=== PATIENT | male | born 1930 | race Caucasian/White ===

== ENCOUNTER 2016-12-14 12:58 | Emergency (ER) | payer OTHER ==
[~2016-12-14] VITALS: Ht 182.9 cm; Wt 72.3 kg
[~2016-12-14 12:58] MED LIST: ASPI325T45 PO; LEVO100T PO; MULTIVITAMIN SENIOR PO; PRLSR20 PO; SIMV20TA2 PO; TRAV0.00 OPB
[2016-12-14 13:01] VITALS: TEMP 37
[2016-12-14] MEDS ORDERED: SODIUM CHLORIDE 0.9% 500ML 500 ML IV STA (13:09)
[2016-12-14] MEDS ORDERED: ALBUT/IPRATROP 3MG/0.5MG NEB 3 ML VIAL INH ONE (13:15)
[2016-12-14] MEDS ORDERED: ACETAMINOPHEN 500 MG TAB PO STA (13:16)
[2016-12-14] MEDS ORDERED: MELA1CAP9 PO (13:20)
[2016-12-14] MEDS ORDERED: METO-720 PO (13:20)
[2016-12-14 13:26] VITALS: O2SAT 96; Ht 182.9 cm; Wt 72.3 kg
--- NOTE | 2016-12-14 13:41 | DIAGNOSTIC IMAGING REPORT ---
CHEST ONE VIEW PORTABLE CLINICAL HISTORY: Shortness of breath. Fever. COMPARISON STUDY: 08/13/2014 FINDINGS: The heart is at the upper limits of normal in size. There are interstitial pulmonary fibrotic changes, minimally progressive when compared the prior study. There is no lobar consolidation. There is chronic blunting of the right lateral costophrenic angle. There is a proximal right humeral calcification, likely representing a bone infarct or chondroid lesion.[ IMPRESSION: 1. Interstitial pulmonary fibrotic changes, slightly progressive when compared the prior study 2. Persistent blunting of the right lateral costophrenic angle. This may indicate a small right pleural effusion Electronically signed by: Camron Waller M.D. 12/14/2016 1:39 PM Dictated Date/Time: 12/14/2016 1:37 PM
--- NOTE | 2016-12-14 13:52 | EMERGENCY ROOM VISIT NOTE ---
History Report prepared by Kimberly: Yadira Gottlieb Under the Supervision of: Dr. Jer Bentley M.D. First contact with patient: 13:09 Chief Complaint: FLU LIKE SX Stated Complaint: SHAKES, FLU, POSS FEVER History of Present Illness The patient is a 86 year old male who presents to the Emergency Room with complaints of worsening flu-like symptoms that started yesterday. He is experiencing "shakes", cough, and diarrhea. He is experiencing 3-4 episodes of diarrhea a day. The patient denies abdominal pain. He has not taken any Tylenol. The patient also states that he woke up with a sore throat this morning , but it was relieved after drinking Pepsi. Source of History: patient Onset: yesterday Quality: other (flu-like symptoms) Timing: worsening Associated Symptoms: + cough, + diarrhea, + sorethroat, No abdominal pain Note: "shakes" Review of Systems See HPI for pertinent positives & negatives. A total of 10 systems reviewed and were otherwise negative. Past Medical & Surgical Medical Problems: (1) Melanoma (2) [place] (myocardial infarction) Family History Cancer Social History Smoking Status: Never Smoker Marital Status: Occupation Status: retired Current/Historical Medications Scheduled Levothyroxine Sodium (Synthroid), 100 MCG PO DAILY Melatonin (Melatonin), 10 MG PO DAILY Metoprolol Tartrate (Metoprolol Tartrate), 37.5 MG PO BID Omeprazole (Prilosec), 20 MG PO DAILY Oseltamivir Phosphate (Tamiflu), 75 MG PO BID Simvastatin (Zocor), 20 MG PO QPM Scheduled PRN Hydrocodone W/ Homatropine (Hycodan 5/1.5MG 5 Ml), 5 ML PO HS PRN for Cough Allergies Coded Allergies: NO KNOWN DRUG ALLERGIES (Verified Allergy, Unknown, NKDA, 08/13/14) Physical Exam Vital Signs Date Time Temp Pulse Resp B/P Pulse Ox O2 Delivery O2 Flow Rate FiO2 12/14/16 16:27 96 18 92/51 98 12/14/16 13:45 96 12/14/16 13:26 96 Room Air 12/14/16 13:26 96 Room Air 12/14/16 13:01 37.0 87 20 133/79 91 Room Air Physical Exam GENERAL: Patient is a healthy-appearing well-nourished male HEAD: Normocephalic atraumatic EYES: Ocular movements intact pupils equal and react to light OROPHARYNX mucous membranes are moist no exudates present no erythema or edema present NECK: Supple no nuchal rigidity CHEST: Good equal expansion LUNGS: Slight wheezes at the bases. CARDIAC: Normal S1 and S2 ABDOMEN: Soft nontender no guarding BACK: No CVA tenderness EXTREMITIES: No pain upon palpation normal muscle strength in all groups no clubbing cyanosis or edema NEURO: Patient is following commands is answering questions appropriately. Alert and oriented x3 Cranial Nerves 2-12 grossly intact Medical Decision & Procedures ER Provider Diagnostic Interpretation: X-ray results as stated below per interpretation by me and the radiologist: CHEST ONE VIEW PORTABLE IMPRESSION: 1. Interstitial pulmonary fibrotic changes, slightly progressive when compared the prior study 2. Persistent blunting of the right lateral costophrenic angle. This may indicate a small right pleural effusion Electronically signed by: Camron Waller M.D. 12/14/2016 1:39 PM Dictated Date/Time: 12/14/2016 1:37 PM Laboratory Results 12/14/16 13:44 Red Blood Count 4.49, Mean Corpuscular Volume 91.5, Mean Corpuscular Hemoglobin 31.4, Mean Corpuscular Hemoglobin Concent 34.3, Mean Platelet Volume 9.1, Neutrophils (%) (Auto) 63.8, Lymphocytes (%) (Auto) 20.5, Monocytes (%) (Auto) 15.5, Eosinophils (%) (Auto) 0.0, Basophils (%) (Auto) 0.1, Neutrophils # (Auto ) 5.35, Lymphocytes # (Auto) 1.72, Monocytes # (Auto) 1.30, Eosinophils # (Auto ) 0.00, Basophils # (Auto) 0.01 12/14/16 13:44 Test 12/14/16 13:35 12/14/16 13:44 Influenza Type A (RT-PCR) POS for Influ A (NEG) Influenza Type B (RT-PCR) Neg for Influ B (NEG) White Blood Count 8.39 K/uL (4.8-10.8) Red Blood Count 4.49 M/uL (4.7-6.1) Hemoglobin 14.1 g/dL (14.0-18.0) Hematocrit 41.1 % (42-52) Mean Corpuscular Volume 91.5 fL (80-100) Mean Corpuscular Hemoglobin 31.4 pg (25-34) Mean Corpuscular Hemoglobin Concent 34.3 g/dl (32-36) Platelet Count 143 K/uL (130-400) Mean Platelet Volume 9.1 fL (7.4-10.4) Neutrophils (%) (Auto) 63.8 % Lymphocytes (%) (Auto) 20.5 % Monocytes (%) (Auto) 15.5 % Eosinophils (%) (Auto) 0.0 % Basophils (%) (Auto) 0.1 % Neutrophils # (Auto) 5.35 K/uL (1.4-6.5) Lymphocytes # (Auto) 1.72 K/uL (1.2-3.4) Monocytes # (Auto) 1.30 K/uL (0.11-0.59) Eosinophils # (Auto) 0.00 K/uL (0-0.5) Basophils # (Auto) 0.01 K/uL (0-0.2) RDW Standard Deviation 45.9 fL (36.4-46.3) RDW Coefficient of Variation 13.8 % (11.5-14.5) Immature Granulocyte % (Auto) 0.1 % Immature Granulocyte # (Auto) 0.01 K/uL (0.00-0.02) Anion Gap 13.0 mmol/L (3-11) Est Creatinine Clear Calc Drug Dose 44.4 ml/min Estimated GFR () 62.6 Estimated GFR (Non- 54.0 BUN/Creatinine Ratio 19.7 (10-20) Calcium Level 8.9 mg/dl (8.5-10.1) Total Bilirubin 0.3 mg/dl (0.2-1) Aspartate Amino Transf (AST/SGOT) 26 U/L (15-37) Alanine Aminotransferase (ALT/SGPT) 15 U/L (12-78) Alkaline Phosphatase 82 U/L (45-117) Total Creatine Kinase 357 U/L (39-308) Creatine Kinase MB 0.6 ng/ml (0.5-3.6) Creatine Kinase MB Ratio 0.2 (0-3.0) Troponin I 0.033 ng/ml (0-0.045) Total Protein 7.1 gm/dl (6.4-8.2) Albumin 3.2 gm/dl (3.4-5.0) Globulin 3.9 gm/dl (2.5-4.0) Albumin/Globulin Ratio 0.8 (0.9-2) Labs reviewed by ED physician. Medications Administered Medications (Trade) Dose Ordered Sig/Kristen Route Start Time Stop Time Status Last Admin Dose Admin Albuterol/ Ipratropium 12 ml 12 ml ONE ONCE INH 12/14/16 13:15 12/14/16 13:16 DC 12/14/16 13:26 12 ML Sodium Chloride (Nss 500ml) 500 ml @ 999 mls/hr Q31M STAT IV 12/14/16 13:09 12/14/16 13:39 DC 12/14/16 13:25 999 MLS/HR Acetaminophen (Tylenol Tab) 1,000 mg NOW STAT PO 12/14/16 13:16 12/14/16 13:17 DC 12/14/16 13:25 1,000 MG Oseltamivir Phosphate (Tamiflu Cap) 75 mg NOW STAT PO 12/14/16 16:07 12/14/16 16:08 DC 12/14/16 16:07 75 MG Albuterol (Ventolin Hfa Inhaler) 2 puffs NOW ONCE INH 12/14/16 16:15 12/14/16 16:16 DC 12/14/16 16:15 2 PUFFS ECG Indication: SOB/dyspnea Rate (beats per minute): 88 Rhythm: normal sinus Findings: no acute ischemic change, no ectopy ED Course 1312: Past medical records reviewed. The patient was evaluated in room B12. A complete history and physical examination was performed. 1309: Ordered Sodium Chloride 500 ml @ 999 mls/hr IV 1315: Ordered DuoNeb 12 ml INH 1316: Ordered Tylenol Tab 1000 mg PO 1341: I reassessed the patient. His daughter is at bedside now. 1436: I reevaluated the patient. She is resting comfortably. 1607: Ordered Tamiflu Cap 75 mg PO 1613: Upon reexamination the patient is resting comfortably. I discussed results and treatment plan with the patient. I recommended that the patient stay in the hospital, but he refused. The patient is ready for discharge. 1615: Ordered Albuterol 2 puffs INH Medical Decision Differential diagnosis: Etiologies such as infections, reactive airway disease, pneumonia, pneumothorax , COPD, CHF, cardiac ischemia, pulmonary embolism, musculoskeletal, gastrointestinal, as well as others were entertained. This is an 86-year-old male who presents emergency Department with cough shortness of breath along with flulike symptoms. The patient was given an hour- long breathing treatment in the emergency department along with Hycodan for his cough. Repeat examination revealed improvement patient's symptoms. The patient did test positive for influenza A and I did recommend that he be admitted to the hospital however the patient himself is requesting ago home. I think this is reasonable as however I strongly encouraged him to return if his symptoms worsen. He was started on Tamiflu here and placed on an inhaler. Patient and family were in agreement with the treatment plan. Impression Primary Impression: Influenza A Scribe Attestation The scribe's documentation has been prepared under my direction and personally reviewed by me in its entirety. I confirm that the note above accurately reflects all work, treatment, procedures, and medical decision making performed by me. Departure Information Dispostion Home / Self-Care Prescriptions Hydrocodone W/ Homatropine (HYCODAN 5/1.5MG 5 ML) 1 Syp Syp 5 ML PO HS Y for Cough, #120 ML Prov: Jer Bentley MD 12/14/16 Oseltamivir Phosphate (Tamiflu) 75 Mg Cap 75 MG PO BID for 5 Days, #10 CAP Prov: Jer Bentley MD 12/14/16 Referrals Mallory Kam M.D. (PCP) Forms HOME CARE DOCUMENTATION FORM, IMPORTANT VISIT INFORMATION Patient Instructions ED Flu, My [facility] Additional Instructions You received narcotic or benzodiazepene medication while in the emergency room today. Do not drive, operate heavy machinery, or drink alcohol under the influence of this medication. Take 1000 mg Tylenol every 6 hours Use inhaler twice every 6 hours You have been examined and treated today on an emergency basis only. This is not a substitute for, or an effort to provide, complete comprehensive medical care. It is impossible to recognize and treat all injuries or illnesses in a single emergency department visit. It is therefore important that you follow up closely with Dr Kam. Call as soon as possible for an appointment. Thank you for your time and consideration. I look forward to speaking with you again soon. Please don't hesitate to call us if you have any questions.
[2016-12-14 13:57] LABS: BASO % 0.1 %; BASO ABS # 0.01 K/uL (0-0.2); COMPLETE YES; HEMATOCRIT 41.1 % (42-52); IG% 0.1 %; LYMPH % 20.5 %; LYMPH ABS # 1.72 K/uL (1.2-3.4); MEAN CELL VOLUME 91.5 fL (80-100); MEAN CORPUSCULAR HEMOGLOBIN 31.4 pg (25-34); MEAN CORPUSCULAR HGB CONC 34.3 g/dl (32-36); MEAN PLATELET VOLUME 9.1 fL (7.4-10.4); MONO % 15.5 %; NEUT % 63.8 %; PLATELET COUNT 143 K/uL (130-400); RED BLOOD COUNT 4.49 M/uL (4.7-6.1); WHITE BLOOD COUNT 8.39 K/uL (4.8-10.8)
[2016-12-14 14:15] LABS: BUN/CREATININE RATIO 19.7 (10-20); CALCIUM 8.9 mg/dl (8.5-10.1); CREATININE 1.2 mg/dl (0.60-1.40); POTASSIUM 3.7 mmol/L (3.5-5.1)
[2016-12-14 14:19] LABS: ALB/GLOB RATIO 0.8 (0.9-2); CKMB/CK RATIO 0.2 (0-3.0)
[2016-12-14 16:03] LABS: INFLUENZA B PCR Neg for Influ B (NEG)
[2016-12-14 16:05] LABS: INFLUENZA A PCR POS for Influ A (NEG)
[2016-12-14] MEDS ORDERED: OSELTAMIVIR PHOSPHATE 75 MG CAP PO STA (16:07)
[2016-12-14] MEDS ORDERED: NF406 PO (16:13)
[2016-12-14] MEDS ORDERED: HYDR5SYP11 PO (16:14)
[2016-12-14] MEDS ORDERED: ALBUTEROL HFA 8 GM INHALER INH ONE (16:15)
[2016-12-14 16:27] VITALS: BP 92/51; PULSE 96; O2SAT 98
== END 2016-12-14 16:28 | disposition home or self-care (01) ==
LOC: C.EDB 12:59
DX: J09.X2 Influenza due to identified novel influenza A virus with other respiratory manifestations (principal)

== ENCOUNTER 2016-12-16 10:00 | Emergency (ER) | payer OTHER ==
[~2016-12-16] VITALS: Ht 182.9 cm; Wt 73.0 kg
[~2016-12-16 10:00] MED LIST changes: -ASPI325T45 PO; +HYDR5SYP11 PO; +MELA1CAP9 PO; +METO-720 PO; -MULTIVITAMIN SENIOR PO; +NF406 PO; -TRAV0.00 OPB
[2016-12-16 10:04] VITALS: TEMP 36.3; Ht 182.9 cm; Wt 73.0 kg
[2016-12-16] MEDS ORDERED: SODIUM CHLORIDE 0.9% 1000ML 500 ML IV STA (10:11)
[2016-12-16] MEDS ORDERED: ONDANSETRON INJ 2 MG/ML 2 ML VIAL IV STA (10:11)
[2016-12-16] MEDS ORDERED: MoRPHine SULFATE 4 MG/ML 1 ML CARP\\VIAL IV PRN (10:15)
[2016-12-16] MEDS ORDERED: OPTIRAY 320 IV PRN (10:15)
--- NOTE | 2016-12-16 10:28 | EMERGENCY ROOM VISIT NOTE ---
History Report prepared by Kimberly: Yadira Gottlieb Under the Supervision of: Dr. Morgan Duque M.D. First contact with patient: 10:10 Chief Complaint: ABDOMINAL PAIN Stated Complaint: STOMACH ACHE Nursing Triage Summary: pt treated here on Sat dx with flu , pt reports abdominal pain with nausea feels unable to eat DT pain in stomach takin tamiflu and neb tx at home History of Present Illness The patient is a 86 year old male who presents to the Emergency Room with complaints of worsening epigastric abdominal pain that started yesterday. He rates his discomfort as an 8/10 in severity. The patient is also experiencing nausea. He states that he is unable to eat secondary to the abdominal pain. The patient was evaluated in the ED 2 days ago and diagnosed with the flu. He is taking Tamiflu and doing nebulizer treatments at home. Per the patient's daughter, the patient ate a hamburger and had a milkshake after he left the ED two days ago. Since then he has not been eating much, but he has been drinking ofe wilian. The patient's daughter also states that the patient has not been sleeping much secondary to the pain. The patient still has his gallbladder and appendix. He denies any previous abdominal surgeries. Source of History: patient Onset: yesterday Position: abdomen (epigastric) Symptom Intensity: 8/10 Timing: worsening Associated Symptoms: + nausea Review of Systems See HPI for pertinent positives & negatives. A total of 10 systems reviewed and were otherwise negative. Past Medical & Surgical Medical Problems: (1) Melanoma (2) [place] (myocardial infarction) Family History No significant family history Social History Smoking Status: Never Smoker Marital Status: Occupation Status: retired Current/Historical Medications Scheduled Aspirin (Aspirin), 0.5 MG PO DAILY Levothyroxine Sodium (Synthroid), 100 MCG PO DAILY Melatonin (Melatonin), 10 MG PO DAILY Metoprolol Tartrate (Lopressor) (Lopressor), 37.5 MG PO BID Omeprazole (Prilosec), 20 MG PO DAILY Ondasetron Odt (Zofran Odt), 4 MG SL Q6H Oseltamivir Phosphate (Tamiflu), 75 MG PO BID Simvastatin (Zocor), 40 MG PO QPM Scheduled PRN Hydrocodone W/ Homatropine (Hycodan 5/1.5MG 5 Ml), 5 ML PO HS PRN for Cough Tramadol (Ultram), 50 MG PO Q8H PRN for Pain Allergies Coded Allergies: NO KNOWN DRUG ALLERGIES (Verified Allergy, Unknown, NKDA, 12/16/16) Physical Exam Vital Signs Date Time Temp Pulse Resp B/P Pulse Ox O2 Delivery O2 Flow Rate FiO2 12/16/16 14:11 68 18 114/61 98 Room Air 12/16/16 12:27 64 18 122/79 97 Room Air 12/16/16 11:15 69 18 120/72 94 Room Air 12/16/16 10:04 36.3 77 18 98/62 99 Room Air Physical Exam CONSTITUTIONAL: Patient is in moderate distress. HEENT: No icterus, moist mucous membranes NECK: No meningismus, trachea is midline. CARDIOVASCULAR: Regular rate, normal perfusion RESPIRATORY: Unlabored breathing. Clear to auscultation. GASTROINTESTINAL: Mild epigastric tenderness. GENITOURINARY: No flank tenderness MUSCULOSKELETAL: Full range of motion NEUROLOGIC: No acute gross focal deficits. PSYCHIATRIC: Normal affect SKIN: Normal for ethnicity. Medical Decision & Procedures ER Provider Diagnostic Interpretation: Radiology results as stated below per my review and radiologist interpretation. CHEST ONE VIEW PORTABLE IMPRESSION: Chronic interstitial thickening consistent with interstitial lung disease, likely pulmonary fibrosis. No superimposed consolidation. Electronically signed by: Jairo Mcnally M.D. 12/16/2016 10:36 AM Dictated Date/Time: 12/16/2016 10:[address] OF THE ABDOMEN AND PELVIS WITH CONTRAST IMPRESSION: 1. Mild increase in size of the mesenteric mass and enlarged mediastinal and retroperitoneal lymph nodes since CT of August 07, 2016. The findings are highly suggestive of a neoplastic process and differential considerations include metastatic disease, carcinoid and lymphoma. A 2 cm apparent peripancreatic lymph node results in severe narrowing of the superior mesenteric vein which is highly suggestive of a neoplastic process. This likely reflects a pathologic lymph node. Pancreatic adenocarcinoma could appear similar although is considered slightly less likely. 2. No biliary or pancreatic ductal dilatation. 3. Several hepatic cysts. In addition, multiple subcentimeter hypodense hepatic lesions are too small to characterize. A few of these are more prominent than on exam of August 07, 2016 and remain indeterminate. 4. Pulmonary fibrosis within visualized portions of the lungs. Indeterminate mediastinal and bilateral hilar lymph nodes which are partially imaged on this exam. Electronically signed by: Jairo Mcnally M.D. 12/16/2016 1:26 PM Dictated Date/Time: 12/16/2016 1:07 PM Laboratory Results 12/16/16 10:30 Red Blood Count 4.62, Mean Corpuscular Volume 90.0, Mean Corpuscular Hemoglobin 31.4, Mean Corpuscular Hemoglobin Concent 34.9, Mean Platelet Volume 9.5, Neutrophils (%) (Auto) 58.4, Lymphocytes (%) (Auto) 26.6, Monocytes (%) (Auto) 14.1, Eosinophils (%) (Auto) 0.5, Basophils (%) (Auto) 0.2, Neutrophils # (Auto ) 3.74, Lymphocytes # (Auto) 1.70, Monocytes # (Auto) 0.90, Eosinophils # (Auto ) 0.03, Basophils # (Auto) 0.01 12/16/16 10:30 Test 12/16/16 10:30 12/16/16 11:15 White Blood Count 6.39 K/uL (4.8-10.8) Red Blood Count 4.62 M/uL (4.7-6.1) Hemoglobin 14.5 g/dL (14.0-18.0) Hematocrit 41.6 % (42-52) Mean Corpuscular Volume 90.0 fL (80-100) Mean Corpuscular Hemoglobin 31.4 pg (25-34) Mean Corpuscular Hemoglobin Concent 34.9 g/dl (32-36) Platelet Count 153 K/uL (130-400) Mean Platelet Volume 9.5 fL (7.4-10.4) Neutrophils (%) (Auto) 58.4 % Lymphocytes (%) (Auto) 26.6 % Monocytes (%) (Auto) 14.1 % Eosinophils (%) (Auto) 0.5 % Basophils (%) (Auto) 0.2 % Neutrophils # (Auto) 3.74 K/uL (1.4-6.5) Lymphocytes # (Auto) 1.70 K/uL (1.2-3.4) Monocytes # (Auto) 0.90 K/uL (0.11-0.59) Eosinophils # (Auto) 0.03 K/uL (0-0.5) Basophils # (Auto) 0.01 K/uL (0-0.2) RDW Standard Deviation 44.5 fL (36.4-46.3) RDW Coefficient of Variation 13.5 % (11.5-14.5) Immature Granulocyte % (Auto) 0.2 % Immature Granulocyte # (Auto) 0.01 K/uL (0.00-0.02) Anion Gap 10.0 mmol/L (3-11) Est Creatinine Clear Calc Drug Dose 62.5 ml/min Estimated GFR () 90.4 Estimated GFR (Non- 78.0 BUN/Creatinine Ratio 14.9 (10-20) Calcium Level 8.8 mg/dl (8.5-10.1) Total Bilirubin 0.3 mg/dl (0.2-1) Direct Bilirubin < 0.1 mg/dl (0-0.2) Aspartate Amino Transf (AST/SGOT) 36 U/L (15-37) Alanine Aminotransferase (ALT/SGPT) 19 U/L (12-78) Alkaline Phosphatase 83 U/L (45-117) Total Protein 6.9 gm/dl (6.4-8.2) Albumin 3.1 gm/dl (3.4-5.0) Lipase 87 U/L (73-393) Urine Color YELLOW Urine Appearance CLEAR (CLEAR) Urine pH 6.0 (4.5-7.5) Urine Specific [place] >= 1.030 (1.000-1.030) Urine Protein 1+ (NEG) Urine Glucose (UA) NEG (NEG) Urine Ketones NEG (NEG) Urine Occult Blood NEG (NEG) Urine Nitrite NEG (NEG) Urine Bilirubin NEG (NEG) Urine Urobilinogen NEG (NEG) Urine Leukocyte Esterase NEG (NEG) Urine RBC 0-4 /hpf (0-4) Urine WBC 10-30 /hpf (0-5) Urine Epithelial Cells 0-5 /lpf (0-5) Urine Bacteria 1+ (NEG) Labs reviewed by ED physician. Medications Administered Medications (Trade) Dose Ordered Sig/Kristen Route Start Time Stop Time Status Last Admin Dose Admin Ondansetron HCl 4 mg 4 mg NOW STAT IV 12/16/16 10:11 12/16/16 10:13 DC 12/16/16 10:40 4 MG Sodium Chloride (Nss 1000ml) 500 ml @ 0 mls/hr Q0M STAT IV 12/16/16 10:11 12/16/16 10:13 DC 12/16/16 10:11 500 MLS/HR Morphine Sulfate (MoRPHine SULFATE INJ) 4 mg ONE PRN IV 12/16/16 10:15 12/16/16 14:45 DC 12/16/16 10:40 4 MG ED Course 1011: Ordered Sodium Chloride 500 ml @ 0 mls/hr Wide Open IV, Zofran Inj 4 mg IV 1015: Ordered Morphine Sulfate 4 mg IV 1017: Past medical records reviewed. The patient was evaluated in room B11. A complete history and physical examination was performed. 1402: Upon reexamination the patient is doing well. I discussed results and treatment plan with the patient. He verbalizes agreement and understanding. The patient is ready for discharge. Medical Decision Differential diagnoses include but are not limited to; viral syndrome, pneumonia , pancreatitis, cholecystitis. 86-year-old presents into the emergency room for mild to moderate epigastric discomfort and nausea over the last day or so after being seen here and diagnosed with the flu. The daughter notes a history of melanoma and some lymph nodes concerning for metastatic spread I CT done in August. Patient hydrated medicated for pain with subsequent screening evaluation revealing concern for spread of neoplastic process. Patient and daughter products copy result understand follow-up with her doctor. They also are very clear that he must return emergency room for any worsening or worrisome symptoms especially in the context of flu. Compliant with Tamiflu. Rx: Zofran and Tramdol 1-2 tabs PRN. Impression Primary Impression: Neoplastic growth Scribe Attestation The scribe's documentation has been prepared under my direction and personally reviewed by me in its entirety. I confirm that the note above accurately reflects all work, treatment, procedures, and medical decision making performed by me. Departure Information Dispostion Home / Self-Care Prescriptions Tramadol (Ultram) 50 Mg Tab 50 MG PO Q8H Y for Pain, #12 TAB Prov: Morgan Duque MD 12/16/16 Ondasetron Odt (ZOFRAN ODT) 4 Mg Tab 4 MG SL Q6H for Nausea for 5 Days, #20 TAB Prov: Morgan Duque MD 12/16/16 Referrals Mallory Kam M.D. (PCP) Forms HOME CARE DOCUMENTATION FORM, IMPORTANT VISIT INFORMATION Patient Instructions My [facility]
--- NOTE | 2016-12-16 10:37 | DIAGNOSTIC IMAGING REPORT ---
CHEST ONE VIEW PORTABLE CLINICAL HISTORY: Abdominal pain. Flu. COMPARISON STUDY: Chest radiograph December 14, 2016. FINDINGS: No pneumothorax or pleural effusion is present. Cardiomediastinal silhouette is stable. A chondroid lesion within the proximal shaft of the right humerus is indeterminate although statistically benign. Interstitial thickening with a lower lobe predominance is noted. There is no consolidation. IMPRESSION: Chronic interstitial thickening consistent with interstitial lung disease, likely pulmonary fibrosis. No superimposed consolidation. Electronically signed by: Jairo Mcnally M.D. 12/16/2016 10:36 AM Dictated Date/Time: 12/16/2016 10:34 AM
[2016-12-16 10:47] LABS: BASO % 0.2 %; BASO ABS # 0.01 K/uL (0-0.2); COMPLETE YES; EOS % 0.5 %; HEMATOCRIT 41.6 % (42-52); IG% 0.2 %; LYMPH % 26.6 %; MEAN CORPUSCULAR HEMOGLOBIN 31.4 pg (25-34); MEAN CORPUSCULAR HGB CONC 34.9 g/dl (32-36); MEAN PLATELET VOLUME 9.5 fL (7.4-10.4); MONO % 14.1 %; NEUT % 58.4 %; PLATELET COUNT 153 K/uL (130-400); RED BLOOD COUNT 4.62 M/uL (4.7-6.1); WHITE BLOOD COUNT 6.39 K/uL (4.8-10.8)
[2016-12-16] MEDS ORDERED: METO25TA56 PO (10:52)
[2016-12-16] MEDS ORDERED: ASPI325T45 PO (10:52)
[2016-12-16] MEDS ORDERED: SIMV80TA2 PO (10:52)
[2016-12-16 11:06] LABS: ALT/SGPT 19 U/L (12-78); BLOOD UREA NITROGEN 13 mg/dl (7-18); BUN/CREATININE RATIO 14.9 (10-20); CALCIUM 8.8 mg/dl (8.5-10.1); CARBON DIOXIDE 24 mmol/L (21-32); CHLORIDE 99 mmol/L (98-107); CREATININE 0.86 mg/dl (0.60-1.40); GLUCOSE 122 mg/dl (70-99); POTASSIUM 3.9 mmol/L (3.5-5.1); SODIUM 133 mmol/L (136-145)
[2016-12-16 11:16] LABS: ALKALINE PHOSPHATASE 83 U/L (45-117); AST/SGOT 36 U/L (15-37)
[2016-12-16 11:47] LABS: MANUAL MICROSCOPIC REQUIRED? YES; URINE APPEARANCE CLEAR (CLEAR); URINE BILIRUBIN NEG (NEG); URINE COLOR YELLOW; URINE NITRITE NEG (NEG); URINE SPECIFIC GRAVITY >= 1.030 (1.000-1.030); UROBILINOGEN NEG (NEG)
[2016-12-16 11:52] LABS: REVIEW REQ? NO
[2016-12-16 11:57] LABS: URINE BACTERIA 1+ (NEG); URINE RBC 0-4 /hpf (0-4)
--- NOTE | 2016-12-16 13:28 | DIAGNOSTIC IMAGING REPORT ---
CT OF THE ABDOMEN AND PELVIS WITH CONTRAST CLINICAL HISTORY: Abdominal pain. COMPARISON STUDY: CT of the abdomen and pelvis August 07, 2016. TECHNIQUE: Following IV administration of 118 mL of Optiray-320, axial images of the abdomen and pelvis were obtained from the lung bases to the proximal femurs. Images were reviewed in the axial, sagittal, and coronal planes. IV contrast was administered without complication. Oral contrast was administered. CT DOSE: 496.62 mGy.cm FINDINGS: Visualized portions lower chest demonstrate several prominent mediastinal and bilateral hilar lymph nodes which are partially imaged on this exam. The heart is mildly enlarged. There is subpleural honeycombing within visualized portions of the lungs with traction bronchiectasis. No pneumatosis, free air or portal venous gas is present. There are multiple water attenuation hepatic lesions which are consistent with cysts. There are numerous hypodense subcentimeter hepatic lesions which are too small to characterize. A few of these are more prominent than on exam of August 07, 2016. The spleen, adrenal glands and left kidney are normal. There are 2 right renal cysts. There is no biliary or pancreatic ductal dilatation. There is no evidence for a bowel obstruction. There is left colon diverticulosis without evidence for acute diverticulitis. Images of the pelvis are degraded by streak artifact from a right hip arthroplasty. A 3.4 cm mesenteric mass within the right mid abdomen shown on image 236 of 511 has mildly increased in size since CT of August 07, 2016 when it measured 3.2 cm. There are multiple enlarged mesenteric lymph nodes which have mildly increased in size since prior exam. A left-sided mesenteric node shown on image 190 now measures 0.9 cm. It previously measured 0.6 cm. An apparent 2 cm peripancreatic node shown on image 190 is also increased in size. An aortocaval lymph node shown on image 196 is slightly increased in size. It measures 1.2 centers. Of note, there is no severe narrowing of the superior mesenteric vein. The main, left and right portal veins are patent. No suspicious osseous lesions are present. IMPRESSION: 1. Mild increase in size of the mesenteric mass and enlarged mediastinal and retroperitoneal lymph nodes since CT of August 07, 2016. The findings are highly suggestive of a neoplastic process and differential considerations include metastatic disease, carcinoid and lymphoma. A 2 cm apparent peripancreatic lymph node results in severe narrowing of the superior mesenteric vein which is highly suggestive of a neoplastic process. This likely reflects a pathologic lymph node. Pancreatic adenocarcinoma could appear similar although is considered slightly less likely. 2. No biliary or pancreatic ductal dilatation. 3. Several hepatic cysts. In addition, multiple subcentimeter hypodense hepatic lesions are too small to characterize. A few of these are more prominent than on exam of August 07, 2016 and remain indeterminate. 4. Pulmonary fibrosis within visualized portions of the lungs. Indeterminate mediastinal and bilateral hilar lymph nodes which are partially imaged on this exam. Electronically signed by: Jairo Mcnally M.D. 12/16/2016 1:26 PM Dictated Date/Time: 12/16/2016 1:07 PM
[2016-12-16 14:11] VITALS: BP 114/61; PULSE 68; O2SAT 98
[2016-12-16] MEDS ORDERED: ONDA4TAB10 SL (14:18)
[2016-12-16] MEDS ORDERED: TRAM-10 PO (14:21)
== END 2016-12-16 14:33 | disposition home or self-care (01) ==
LOC: C.EDB 10:01
DX: D49.0 Neoplasm of unspecified behavior of digestive system (principal); Z85.820 Personal history of malignant melanoma of skin; I25.2 Old myocardial infarction; Z79.82 Long term (current) use of aspirin; Z79.899 Other long term (current) drug therapy